=== PATIENT | female | born 1945 | race Caucasian/White ===

== ENCOUNTER → 2016-08-03 | Outpatient (CLI) | payer OTHER, BC | LOC: BMCIMAGING 12:47 | DX: N60.92 Unspecified benign mammary dysplasia of left breast (principal) | CPT/HCPCS: G0206 ==

== ENCOUNTER → 2017-01-21 | Outpatient (CLI) | payer OTHER, BC | LOC: BMCIMAGING 08:42 | PROVIDERS: ATTEND Internal Medicine | DX: Z12.31 Encounter for screening mammogram for malignant neoplasm of breast (principal); Z80.3 Family history of malignant neoplasm of breast | CPT/HCPCS: G0202 ==

== ENCOUNTER → 2017-03-24 | Outpatient (CLI) | payer OTHER, BC | LOC: BMCIMAGING 11:18 | PROVIDERS: ATTEND Internal Medicine Nephrology | DX: N02.2 Recurrent and persistent hematuria with diffuse membranous glomerulonephritis (principal) ==

== ENCOUNTER → 2017-06-10 | Outpatient (CLI) | payer OTHER, BC | LOC: BMCIMAGING 09:46 | PROVIDERS: ATTEND Internal Medicine | DX: Z13.820 Encounter for screening for osteoporosis (principal) ==